=== PATIENT | female | born 1965 | race Caucasian/White ===

== ENCOUNTER 2017-12-31 13:58 | Emergency (ER) | payer OTHER, BC ==
[2017-12-31 14:05] VITALS: TEMP 97.9
--- NOTE | 2017-12-31 15:10 | EDPHY ---
H & P Stated Complaint: Woke up w/ swollen hands, dizzy and lightheaded since this am Time Seen by Provider: 12/31/17 15:09 - Personal History LMP (Females 10-55): Irregular Current Tetanus/Diphtheria Vaccine: Unsure Current Tetanus Diphtheria and Acellular Pertussis (TDAP): Unsure - Medical/Surgical History Hx Asthma: No Hx Chronic Respiratory Disease: No Hx Diabetes: No Hx Cardiac Disease: No Hx Renal Disease: No Hx Cirrhosis: No Hx Alcoholism: No Hx HIV/AIDS: No Hx Splenectomy or Spleen Trauma: No Other PMH: Denies per pt - Social History Smoking Status: Never smoked Constitutional: Initial Vital Signs Temperature (C) 36.6 C 12/31/17 14:02 Heart Rate 76 12/31/17 14:02 Respiratory Rate 16 12/31/17 14:02 Blood Pressure 116/85 H 12/31/17 14:02 O2 Sat (%) 96 12/31/17 14:02 O2 Delivery Mode Room Air Allergies/Adverse Reactions: No Known Allergies Allergy (Unverified 12/31/17 14:02) Home Medications: Medication Instructions Recorded Hrt 12/31/17 Medical Decision Making ED Course/Re-evaluation: CHIEF COMPLAINT: Hand swelling, shakiness, arm paresthesias. HISTORY OF PRESENT ILLNESS: The patient is a 52 y/o female complaining of bilateral hand swelling, shakiness, and bilateral arm paresthesias onset this morning upon waking. She has been traveling recently between [place] and [facility] and felt normal yesterday. Upon waking this morning she felt like both hands were "poofy" and she had difficulty getting her rings off. Throughout the day, she's had intermittent tingling in both arms, shaky, and generally weak. She says she feels "like when you don't eat and have low blood sugar." Symptoms did not improve with food or water. She denies fever, chills, calf pain or swelling , dyspnea, chest pain, cough, sore throat, urinary symptoms. No recent changes to diet or large increases in salt intake. She is normally healthy. REVIEW OF SYSTEMS: A 10 point review of systems was performed and is negative with the exception of the elements mentioned in the history of present illness. PHYSICAL EXAM: HR, BP, O2 Sat, RR. Temp noted General Appearance: Alert, well hydrated, appropriate, and non-toxic appearing. Head: Atraumatic without scalp tenderness or obvious injury Eyes: Pupils equal, round, reactive to light and accommodation, EOMI, no trauma , no injection. Nose: Atraumatic, no rhinorrhea, clear. Throat: Mucus membranes moist. Neck: Supple Respiratory: No retractions, no distress, no wheezes, and no accessory muscle use. Lungs are clear to auscultation bilaterally. Cardiovascular: Regular rate and rhythm, no murmurs, rubs, or gallops. Good capillary refill all extremities. Gastrointestinal: Abdomen is soft, nontender, non-distended, no masses, no rebound, no guarding, no peritoneal signs. Musculoskeletal: Normal active ROM of all extremities, atraumatic. Neurological: Alert, appropriate, and interactive. The patient has non-focal cranial nerves, motor, sensory, and cerebellar exam. Skin: No rashes, good turgor, no nodules on palpation. Past medical history: Denies Past surgical history: Denies Family history: Noncontributory Social history: Traveled recently to [place]. Lives in [place]. Employed. DIAGNOSTICS/PROCEDURES/CRITICAL CARE TIME: The 12 lead EKG was interpreted by myself. Sinus, rate 65. See hard copy and/or "tracemaster" electronic copy for interpretation. DIFFERENTIAL DIAGNOSIS: The differential diagnosis for the patient's symptoms included but was not limited to dehydration, pneumonia, urinary tract infection , viral syndrome, meningitis, sepsis, hypoalbuminemia, congestive heart failure , venous stasis, and DVT. MEDICAL DECISION MAKING: This is a normally healthy 52 y/o female who presents with reported bilateral hand swelling, intermittent tingling in both arms, shakiness, and general malaise. Her exam is normal, no objective swelling or tremulousness noted. Plan for IV, labs, EKG. Normal EKG. Labs unremarkable including d-dimer. Reassessed patient and discussed work up. I have not found an obvious cause for her symptoms here. Do not suspect emergent cardiac, neurologic, or respiratory etiology. Possibly signs of early infection. Patient will be discharged with standard care and return precautions. She is comfortable with this plan. - Data Points Laboratory Results: Laboratory Results 12/31/17 15:30 12/31/17 15:30 02/17/18 02/17/18 02/17/18 15:30 15:30 15:30 WBC 4.07 10^3/uL 10^3/uL (3.80-9.50) RBC 4.35 10^6/uL 10^6/uL (4.18-5.33) Hgb 14.4 g/dL g/dL (12.6-16.3) Hct 42.8 % % (38.0-47.0) MCV 98.4 fL fL (81.5-99.8) MCH 33.1 pg pg (27.9-34.1) MCHC 33.6 g/dL g/dL (32.4-36.7) RDW 11.6 % % (11.5-15.2) Plt Count 241 10^3/uL 10^3/uL (150-400) MPV 10.1 fL fL (8.7-11.7) Neut % (Auto) 59.3 % % (39.3-74.2) Lymph % (Auto) 26.3 % % (15.0-45.0) [place] % (Auto) 13.3 % H % (4.5-13.0) Eos % (Auto) 0.2 % L % (0.6-7.6) Baso % (Auto) 0.7 % % (0.3-1.7) Nucleat RBC Rel Count 0.0 % % (0.0-0.2) Absolute Neuts (auto) 2.41 10^3/uL 10^3/uL (1.70-6.50) Absolute Lymphs (auto) 1.07 10^3/uL 10^3/uL (1.00-3.00) Absolute Monos (auto) 0.54 10^3/uL 10^3/uL (0.30-0.80) Absolute Eos (auto) 0.01 10^3/uL L 10^3/uL (0.03-0.40) Absolute Basos (auto) 0.03 10^3/uL 10^3/uL (0.02-0.10) Absolute Nucleated RBC 0.00 10^3/uL 10^3/uL (0-0.01) Immature Gran % 0.2 % % (0.0-1.1) Immature Gran # 0.01 10^3/uL 10^3/uL (0.00-0.10) D-Dimer 0.50 ug/mLFEU ug/mLFEU (0.00-0.50) Sodium 143 mEq/L mEq/L (135-145) Potassium 4.2 mEq/L mEq/L (3.5-5.2) Chloride 103 mEq/L mEq/L (97-110) Carbon Dioxide 28 mEq/l mEq/l (22-31) Anion Gap 12 mEq/L mEq/L (8-16) BUN 13 mg/dL mg/dL (7-23) Creatinine 0.7 mg/dL mg/dL (0.6-1.0) Estimated GFR > 60 Glucose 92 mg/dL mg/dL (70-100) Calcium 9.4 mg/dL mg/dL (8.5-10.4) Magnesium 2.0 mg/dL mg/dL (1.6-2.3) NT-Pro-B Natriuret Pep 143 pg/mL H pg/mL (0-125) Departure - Departure Disposition: Home, Routine, Self-Care Clinical Impression: Shakiness Condition: Good Instructions: Swollen Joint (ED) Additional Instructions: Follow up with your primary care provider for unimproved symptoms over the next few days. Return to the ED for worsening of condition. Referrals: Damaris Diaz MD [Medical Doctor] - As per Instructions Report Scribed for: Juancarlos rCews Report Scribed by: Melida Lynch Date of Report: 12/31/17 Time of Report: 15:16
--- NOTE | 2017-12-31 15:17 | CPEKG ---
Heart Rate: 64 RR Interval: 938 P-R Interval: 136 QRSD Interval: 70 QT Interval: 400 QTC Interval: 413 P Dight[place]: 49 QRS D[place]: 34 T Wave Dighton: 36 EKG Severity - NORMAL ECG - EKG Impression: SINUS RHYTHM Electronically Signed By: Juancarlos Crews 31-Dec-2017 18:39:43
[2017-12-31 15:42] LABS: PLATELET COUNT 241 10^3/uL (150-400)
[2017-12-31 16:27] VITALS: BP 132/79; PULSE 16; RESP 63; O2SAT 98
== END 2017-12-31 16:26 | disposition home or self-care (01) ==
DX: R25.1 Tremor, unspecified (principal)

== ENCOUNTER → 2018-10-10 | Outpatient (CLI) | payer BC, OTHER | LOC: FIMAGING 12:12 | PROVIDERS: ATTEND Internal Medicine Nephrology | DX: Z13.820 Encounter for screening for osteoporosis (principal); M85.89 Other specified disorders of bone density and structure, multiple sites ==